=== PATIENT | male | born 1990 | race Native Hawaiian/Other Pacific Islander ===

== ENCOUNTER 2022-12-02 19:29 | Outpatient (CLI) | payer MEDICAID | END 2022-12-02 19:30 | disposition critical access hospital (66) | LOC: EMS 19:29 | DX: R56.9 Unspecified convulsions (principal); S09.90XA Unspecified injury of head, initial encounter; W17.89XA Other fall from one level to another, initial encounter; Y93.89 Activity, other specified; Y92.481 Parking lot as the place of occurrence of the external cause | CPT/HCPCS: A0425; A0427; A0999 ==

== ENCOUNTER 2022-12-02 20:01 | Emergency (ER) | payer MEDICAID ==
[2022-12-02 20:07] VITALS: O2SAT 98
--- NOTE | 2022-12-02 20:18 | ED Physician Documentation ---
PD HPI SEIZURE - Stated complaint Stated Complaint: SZ - Chief complaint Chief Complaint: Neuro - History obtained from History obtained from: Patient, Family, EMS - History of Present Illness Timing - onset: How many minutes ago (approximately 45 minutes COPER HAND) Number of seizures: Single, Lasted - seconds - Additional information Additional information: BIBA. 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 Initial HPI provided by EMS (who obtained information from patient on scene with family translating); patient's aunt arrived to ED as I was completing my initial physical exam and she was able to translate with facility. Patient had a seizure tonight, witnessed and lasted less than one minute. Unclear if patient fell. He denies any pain including headache, neck pain. He does not recall event. He has seizure history and takes keppra 750mg BID. He denies missed doses of medication, denies alcohol use. PMHx includes brain tumor with surgical resection of the tumor last year. He has been receiving his medical care at [place]. Review of Systems Constitutional: denies: Fever Respiratory: denies: Dyspnea, Cough GI: denies: Abdominal Pain Musculoskeletal: reports: Reviewed and negative Neurologic: reports: Seizure. denies: Generalized weakness, Headache PD PAST MEDICAL HISTORY - Past Medical History Past Medical History: Yes - Present Medications Home Medications: Ambulatory Orders Medication Instructions Recorded Confirmed Levetiracetam [Keppra] 750 mg PO BID 12/02/22 12/02/22 levETIRAcetam [Keppra] 500 mg PO BID #100 tablet 12/03/22 - Allergies Allergies/Adverse Reactions: Allergies Allergy/AdvReac Type Severity Reaction Status Date / Time No Known Drug Allergies Allergy Verified 12/02/22 20:06 PD ED PE NORMAL - Vitals Vital signs reviewed: Yes - General General: Alert and oriented X 3, No acute distress, Well developed/nourished - HEENT HEENT: PERRL, EOMI - Neck Neck: No bony TTP (cervical collar in place; c-spine palpated through posterior opening in collar) - Cardiac Cardiac: RRR, No murmur - Respiratory Respiratory: No respiratory distress, Clear bilaterally - Abdomen Abdomen: Soft, Non tender - Neuro Neuro: Alert and oriented X 3, 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, No motor deficit, No sensory deficit Eye Opening: Spontaneous Motor: Obeys Commands Verbal: Oriented GCS Score: 15 PD ED PE EXPANDED - HEENT HEENT Visual: 1 - bruising, abrasion Results - Vitals Vitals: Oxygen O2 Source Room air - Labs Labs: Laboratory Tests 12/02/22 12/02/22 21:16 21:16 WBC 7.8 RBC 4.88 Hgb 14.0 Hct 41.4 L MCV 84.8 MCH 28.7 MCHC 33.8 RDW 12.6 Plt Count 273 MPV 8.7 Neut # (Auto) 5.3 Lymph # (Auto) 1.8 [place] # (Auto) 0.5 Eos # (Auto) 0.1 Baso # (Auto) 0.1 Absolute Nucleated RBC 0.00 Nucleated RBC % 0.0 Sodium 136 Potassium 4.4 Chloride 102 Carbon Dioxide 28 Anion Gap 6.0 BUN 13 Creatinine 0.8 Estimated GFR (MDRD) 111 Glucose 96 Calcium 9.5 Total Bilirubin 0.8 AST 15 ALT 12 Alkaline Phosphatase 95 Total Protein 7.9 Albumin 4.2 Globulin 3.7 Albumin/Globulin Ratio 1.1 Lipase 22 - Rads (name of study) CTH Relevant Findings:: Prelim report reviewed, See rad report CT cervical spine Relevant Findings:: Prelim report reviewed, See rad report PD Medical Decision Making - ED course Complexity details: reviewed old records (records from [facility] faxed on our request, reviewed by me), reviewed results, re-evaluated patient, considered differential, d/w patient, d/w family ED course: Normal CBC and ER abdominal panel (hct flagged as low, 41.4 which is insignificant and noncontributory). Patient remains seizure-free during 5-hour ED stay. CT head is notable for remote right frontal craniotomy, periventricular right frontal encephalomalacia with grouped calcifications in the right frontal deep white matter, no acute stroke or hemorrhage identified. This is per the radiologist's interpretation. Although there are no previous studies for comparison available to me nor the radiologist, I was able to get records faxed from [facility]. These records include an ED visit 07/26/2022 when he was evaluated for seizure, and CT of the head at that time has similar findings in the same location. Also in the faxed documents from [facility] are Notes dictated by oncology from outpatient visit 11/30/2022; these indicate "recurrent astrocytoma". Additionally, they note patient's most recent seizure at that time was 11/19/2022. Additionally, these notes indicate patient had MR of the brain with and without contrast on 09/12/2022, findings consistent with recurrent glioblastoma. Although these notes indicate patient was on keppra 1,000mg BID, patient's rx bottle is in ED with patient michael and the label indicates keppra 750mg tablets, two tablets BID. I also see outpatient prescription fills for the 1,500mg BID dose as is indicated on the rx bottle. The patient does not know if he has a neurologist and the rx bottle and outpatient fill history indicate the keppra is being prescribed by family practitioners in [place]. I discussed this case with on-call neurology for [facility] (Dr. Mistry). He recommends increasing keppra to 2,000 mg BID. I discussed this recommendation with patient (again using family for translation). He is given 500mg PO keppra in ED and I electronically submitted rx for 500mg BID keppra to [facility] in [place]. I explained to patient that he is to take his current dose and schedule of keppra IN ADDITION to the new rx (which will total 2 grams BID). Return precautions discussed. He is instructed to contact the group that is managing his seizures as soon as the office is open to arrange for next available appointment for reevaluation Departure - Departure Disposition: 01 Home, Self Care Clinical Impression: Seizure Condition: Good Instructions: ED Seizure Recurrent Prescriptions: levETIRAcetam [Keppra] 500 mg PO BID #100 tablet Comments: I spoke with the neurologist donation worker for [facility] (Dr. Mistry); he recommends increasing your dose of leviteracetam (keppra) to 2,000mg twice per day. I have electronically submitted a prescription for this medication to [facility] in [place]. YOU ARE TO TAKE THIS NEW PRESCRIPTION IN ADDITION TO YOUR CURRENT DOSE OF LEVIT ERACITAM. Contact your doctor on Sunday when the office opens. You should contact whoever is prescribing medication for your seizures, tell them that you had another seizure over the weekend, that your dose of seizure medication was increased. Arrange for the next available appointment for reevaluation. Forms: PCP List Discharge Date/Time: 12/03/22 01:20
[2022-12-02 21:21] LABS: BASOPHILS # (AUTO) 0.1 10^3/uL (0.0-0.1); BASOPHILS % (AUTO) 0.6 %; EOSINOPHILS # (AUTO) 0.1 10^3/uL (0.0-0.7); EOSINOPHILS % (AUTO) 1.2 %; HCT - HEMATOCRIT 41.4 % (42.0-52.0); LYMPHOCYTES # (AUTO) 1.8 10^3/uL (1.5-3.5); LYMPHOCYTES % (AUTO) 23.5 %; MEAN CORPUSCULAR HEMOGLOBIN 28.7 pg (27.0-31.0); MEAN CORPUSCULAR HGB CONC 33.8 g/dL (32.0-36.0); MEAN CORPUSCULAR VOLUME 84.8 fL (80.0-94.0); MEAN PLATELET VOLUME 8.7 fL (7.4-11.4); MONOCYTES # (AUTO) 0.5 10^3/uL (0.0-1.0); MONOCYTES % (AUTO) 6.7 %; NEUTROPHILS # (AUTO) 5.3 10^3/uL (1.5-6.6); NEUTROPHILS % (AUTO) 67.7 %; PLT - PLATELET COUNT 273 10^3/uL (130-450); RED BLOOD COUNT 4.88 10^6/uL (4.70-6.10); RED CELL DISTRIBUTION WIDTH 12.6 % (12.0-15.0); WHITE BLOOD COUNT 7.8 x10^3/uL (4.8-10.8)
[2022-12-02 21:38] LABS: ALBUMIN 4.2 g/dL (3.2-5.5); ALBUMIN/GLOBULIN RATIO 1.1 (1.0-2.2); BILIRUBIN,TOTAL 0.8 mg/dL (0.2-1.0); CALCIUM 9.5 mg/dL (8.5-10.3); CREATININE 0.8 mg/dL (0.6-1.3); POTASSIUM 4.4 mmol/L (3.5-4.5); TOTAL PROTEIN 7.9 g/dL (6.4-8.9)
[2022-12-02 22:13] VITALS: BP 119/77
--- NOTE | 2022-12-02 23:52 | CT Report ---
PROCEDURE: CERVICAL SPINE WO INDICATIONS: seizure, head injury TECHNIQUE: Noncontrast 3 mm thick sections acquired from the skull base to the T4 level. Sagittal and coronal r eformats were then constructed. For radiation dose reduction, the following was used: automated exp osure control, adjustment of mA and/or kV according to patient size. COMPARISON: None. FINDINGS: Image quality: Excellent. Bones: No fractures or dislocations. Visualized superior ribs are intact. Soft tissues: Prevertebral soft tissues are normal in thickness. No paravertebral hematomas. No ap ical pneumothoraces. IMPRESSION: No evidence acute cervical fracture or dislocation. Reviewed by: Pola Osborne MD on 12/02/2022 11:51 PM PDT Approved by: Pola Osborne MD on 12/02/2022 11:51 PM PDT Station ID: [id number]
--- NOTE | 2022-12-02 23:55 | CT Report ---
PROCEDURE: HEAD WO INDICATIONS: seizure, history of brain tumor TECHNIQUE: Noncontrast 4.5 mm thick angled axial sections acquired from the foramen magnum to the vertex. For r adiation dose reduction, the following was used: automated exposure control, adjustment of mA and/or kV according to patient size. COMPARISON: None. FINDINGS: Image quality: Excellent. CSF spaces: Basal cisterns are patent. No extra-axial fluid collections. Ventricles are normal in size and shape. Brain: No midline shift. No intracranial masses or hemorrhage. Periventricular right frontal encep halomalacia with grouped calcifications in the right frontal deep white matter. Small vessel ischemic change. Murphy-white matter interface is normal. Skull and face: Remote right frontal craniotomy. Calvarium and visualized facial bones are intact, w ithout suspicious lesions. Sinuses: Visualized sinuses and mastoids are clear. IMPRESSION: 1. Remote right frontal craniotomy. 2. Periventricular right frontal encephalomalacia with grouped calcifications in the right frontal de ep white matter. 3. No acute stroke or hemorrhage identified. Comment: Comparison with old films may be helpful. Consider nonemergent brain MRI with and without co ntrast. Reviewed by: Pola Osborne MD on 12/02/2022 11:54 PM PDT Approved by: Pola Osborne MD on 12/02/2022 11:54 PM PDT Station ID: [id number]
[2022-12-03] MEDS ORDERED: levETIRAcetam 250 MG TABLET PO STA (01:00)
== END 2022-12-03 01:20 | disposition home or self-care (01) ==
LOC: ED 20:01
DX: R56.9 Unspecified convulsions (principal); S00.81XA Abrasion of other part of head, initial encounter; S00.83XA Contusion of other part of head, initial encounter; V48.4XXA Person boarding or alighting a car injured in noncollision transport accident, initial encounter; Y93.89 Activity, other specified
CPT/HCPCS: 36415; 70450; 72125; 80053; 83690; 85025; 99283; 99284; A9270

== ENCOUNTER 2022-12-24 12:53 | Outpatient (CLI) | payer MEDICAID | END 2022-12-24 12:54 | disposition critical access hospital (66) | LOC: EMS 12:53 | DX: R56.9 Unspecified convulsions (principal) | CPT/HCPCS: A0425; A0429; A0999 ==